=== PATIENT | male | born 1980 | race Caucasian/White ===

== ENCOUNTER 2023-10-02 10:22 | Emergency (ER) | payer OTHER, SELFPAY ==
[2023-10-02 10:25] VITALS: BP 147/74; PULSE 89; RESP 16; TEMP 36.7; O2SAT 98
--- NOTE | 2023-10-02 10:56 | PC.NURSE ---
patient would like a printed prescription since he is here from out of town working
--- NOTE | 2023-10-02 12:46 | ED.BACK ---
HPI - Back Pain/Injury General Chief Complaint: Back Pain/Injury Stated Complaint: back pain Time Seen by Provider: 10/02/23 11:46 History of Present Illness HPI Narrative: patient is a 43-year-old male who presents to the ER with low back pain. Chronic in nature. He was unable to get a flank spine injection due to co-pay issues several weeks ago. 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 No radiation down the leg. No saddle anesthesia. No difficulty with urination /defecation. Related Data Allergies Allergy/AdvReac Type Severity Reaction Status Date / Time divalproex sodium Allergy Headache Verified 10/02/23 10:55 [From Depakote] polyethylene glycol Allergy Weakness Verified 10/02/23 10:55 [From Golytely] polyethylene glycol 3350 Allergy Weakness Verified 10/02/23 10:55 [From Golytely] potassium chloride Allergy Weakness Verified 10/02/23 10:55 [From Golytely] sodium [From Golytely] Allergy Weakness Verified 10/02/23 10:55 sodium bicarbonate Allergy Weakness Verified 10/02/23 10:55 [From Golytely] sodium chloride Allergy Weakness Verified 10/02/23 10:55 [From Golytely] sodium sulfate Allergy Weakness Verified 10/02/23 10:55 [From Golytely] topiramate [From Topamax] Allergy Numbness Verified 10/02/23 10:55 Review of Systems Constitutional: Constitutional: Reports no additional constitutional complaints Cardiovascular: Cardiovascular: Reports no additional cardiovascular complaints Musculoskeletal: Musculoskeletal: Reports back pain, Denies arthralgias and Denies joint swelling Neurologic: Reports system reviewed and no additional complaints, except as documented Exam Narrative: GENERAL: Well-appearing, well-nourished, and in no acute distress. HEAD: Normocephalic, atraumatic. CHEST: Clear to auscultation. No respiratory distress. HEART: Regular rate and rhythm. Normal peripheral pulses. ABDOMEN: Soft, nontender, nondistended. EXTREMITIES: Normal range of motion. No edema. SKIN: Warm, dry, no rash. NEURO: Alert and oriented x3. PSYCH: Normal mood and affect. Course Course Emergency Course: patient resting comfortably. will tx with medrol dosepak. patient would like a work note. Vital Signs Vital signs: Vital Signs Temperature 98.1 F 10/02/23 10:25 Pulse Rate 89 10/02/23 10:25 Respiratory Rate 16 10/02/23 10:25 Blood Pressure 147/74 H 10/02/23 10:25 Pulse Oximetry 98 10/02/23 10:25 Oxygen Delivery Room Air 10/02/23 10:25 Temperature 98.1 F 10/02/23 10:25 Pulse Rate 89 10/02/23 10:25 Respiratory Rate 16 10/02/23 10:25 Blood Pressure 147/74 H 10/02/23 10:25 Pulse Oximetry 98 10/02/23 10:25 Oxygen Delivery Room Air 10/02/23 10:25 Discharge Plan Discharge Clinical Impression: Chronic back pain Patient Disposition: Home, Self-Care Condition: Stable Instructions: Back Pain (ED) Additional Instructions: Please return to the emergency department if you develop severe pain that is not controlled by pain medications or if you are unable to walk because of pain or weakness. Return to the emergency department immediately if you develop fevers, loss of bowel or bladder control (dribbling of urine or having accidents you wouldn't normally have), inability to urinate, numbness of your genital or anal area, or weakness/numbness of your legs or arms as these could all be signs of a serious medical emergency. Prescriptions: New methylprednisolone [Methylpred DP] 4 mg tablets,dose pack See Rx Instructions .ROUTE .COMPLEX Qty: 21 0RF Rx Instructions: orally per package directions Follow-up/Referrals: PHYSICIAN NOT ON STAFF,NONSTAFF [Primary Care Provider] - 1 Week Stand Alone Forms: Work/School Release IP
== END 2023-10-02 12:52 | disposition home or self-care (01) ==
PROVIDERS: Emergency Provider Emergency Medicine
DX: M54.50 Low back pain, unspecified (principal); G89.29 Other chronic pain
CPT/HCPCS: 99283